=== PATIENT | female | born 1995 ===

== ENCOUNTER 2023-09-29 19:38 | Emergency (ER) | payer SELFPAY ==
[~2023-09-29] VITALS: Ht 160 cm; Wt 61.0 kg
[2023-09-29 19:46] VITALS: O2SAT 100
[2023-09-29 20:13] LABS: BASOPHILS % 0.9 % (0.0-2.0); EOSINOPHILS % 0.8 % (0.0-5.0); HEMATOCRIT. 38.9 % (36.0-48.0); HEMOGLOBIN. 13.2 g/dL (12.0-16.0); LYMPHOCYTES % 27.6 % (20.0-50.0); MEAN CORPUSCULAR HGB CONC 33.8 g/dL (31.0-37.0); MEAN CORPUSCULAR VOLUME 88.8 fL (81.0-99.0); MEAN PLATELET VOLUME 11.6 fl (7.4-10.4); MONOCYTES % 7.6 % (2.0-8.0); NEUTROPHILS % 63.1 % (40.0-76.0); PLATELET 220 x1000/uL (130-400); RED BLOOD CELL COUNT 4.39 mill/uL (4.2-5.4); RED CELL DISTRIBUTION WIDTH 13.4 % (11.6-14.6); WHITE BLOOD COUNT 12.3 x1000/uL (4.5-11.0)
[2023-09-29] MEDS: LACTATED RINGERS 1,000 ML IV STA (20:28)
[2023-09-29 20:36] LABS: ALANINE AMINOTRANSFERASE < 7 IU/L (10-49); ALBUMIN 4.1 g/dL (3.2-4.8); ASPARTATE AMINOTRANSFERASE 18 IU/L (<34); B-HCG QUANTITATIVE 2482 mIU/mL (<3); BILIRUBIN TOTAL 0.3 mg/dL (0.1-1.0); CALCIUM 9.1 mg/dL (8.7-10.4); CARBON DIOXIDE 22 mEq/L (21-32); CHLORIDE 102 mEq/L (98-107); CREATININE 0.5 mg/dL (0.6-1.0); GLUCOSE 80 mg/dL (70-105); POTASSIUM 3.9 mEq/L (3.5-5.1); PROTEIN TOTAL 7.1 g/dL (6.0-8.3); SODIUM 134 mEq/L (136-145); UREA NITROGEN BLOOD 8 mg/dL (9-23)
[2023-09-29 21:01] VITALS: BP 120/75; PULSE 73; RESP 16; TEMP 98.2
== END 2023-09-29 21:25 | disposition short-term general hospital (02) ==
LOC: ER 19:38
DX: O60.03 Preterm labor without delivery, third trimester (principal); Z3A.38 38 weeks gestation of pregnancy; Z98.890 Other specified postprocedural states
CPT/HCPCS: 99291; 96360; 76805; 80053; 84702; 85025; 86850; 86900; 86901; 36415; 76817; J7120